=== PATIENT | female | born 1940 | race Caucasian/White ===

== ENCOUNTER 2018-01-10 14:53 | Observation (INO) | payer MEDICARE ==
[~2018-01-10] VITALS: Ht 157.5 cm; Wt 68.1 kg
[2018-01-10] MEDS ORDERED: LISINOPRIL10 MG PO (14:59)
[2018-01-10] MEDS ORDERED: CARVEDILOL12.5 MG PO (14:59)
[2018-01-10] MEDS ORDERED: ASPIRIN81 MG PO (14:59)
[2018-01-10] MEDS ORDERED: ATORVASTATIN CA10 MG PO (14:59)
[2018-01-10] MEDS ORDERED: METFORMIN HCL500 MG PO (14:59)
[2018-01-10] MEDS ORDERED: ASPIRIN 81 MG CHEW TAB PO ONE (15:00)
[2018-01-10 15:18] LABS: BASOPHILS % 0.7 % (0.0-1.0); EOSINOPHILS # (AUTO) 0.3 (0.0-0.4); EOSINOPHILS % 4.4 % (0.0-6.0); HEMOGLOBIN 10.9 g/dL (12.0-16.0); LYMPHOCYTES # (AUTO) 1.4 (1.0-3.2); LYMPHOCYTES % 24.3 % (18.0-39.1); MEAN CORPUSCULAR HEMOGLOBIN 24.9 pg (28-32); MEAN CORPUSCULAR VOLUME 75.3 fL (81-99); MONOCYTES # (AUTO) 0.4 (0.2-0.8); MONOCYTES % 7.6 % (4.4-11.3); NEUTROPHILS # (AUTO) 3.5 (2.1-6.9); NEUTROPHILS % 62.6 % (38.7-80.0); PLATELET COUNT 283 x10e3/uL (140-360); RED BLOOD COUNT 4.38 x10e6/uL (3.6-5.1); RED CELL DISTRIBUTION WIDTH 14.4 % (11.7-14.4)
[2018-01-10 15:25] LABS: CLARITY,URINE HAZY (CLEAR); COLOR,URINE YELLOW (YELLOW); KETONES,URINE NEGATIVE (NEGATIVE); LEUKOCYTE ESTERASE ,URINE 1+ (NEGATIVE); NITRITE,URINE NEGATIVE (NEGATIVE); PROTEIN,URINE DIPSTICK TRACE (NEGATIVE); URINE UROBILINOGEN 0.2 mg/dL (0.2 - 1)
[2018-01-10 15:26] LABS: BILIRUBIN,URINE NEGATIVE (NEGATIVE)
[2018-01-10 15:28] LABS: AMORPHOUS SEDIMENT,URINE FEW (FEW); BACTERIA,URINE FEW /HPF; EPITHELIAL CELLS,URINE MODERATE /LPF
[2018-01-10 15:28] LABS: INR 1.02; PARTIAL THROMBOPLASTIN TIME 30.3 seconds (23.8-35.5); PROTHROMBIN TIME 12.6 seconds (11.9-14.5)
[2018-01-10 15:35] LABS: ALANINE AMINOTRANSFERASE 8 IU/L (0-55); ALBUMIN/GLOBULIN RATIO 1.4 (0.8-2.0); ALKALINE PHOSPHATASE 106 IU/L (40-150); ANION GAP 13.2 mmol/L (8-16); BLOOD UREA NITROGEN 22 mg/dL (7-26); BUN/CREATININE RATIO 15 (6-25); CALCIUM 9.4 mg/dL (8.4-10.2); CARBON DIOXIDE 25 mmol/L (22-29); CHLORIDE 98 mmol/L (98-107); CREATINE KINASE 42 IU/L (29-168); EST GLOMERULAR FILTRATION RATE 34 ML/MIN (60-); GLUCOSE 113 mg/dL (74-118); MAGNESIUM 1.7 MG/DL (1.3-2.1); POTASSIUM 4.2 mmol/L (3.5-5.1); SODIUM 132 mmol/L (136-145)
[2018-01-10] MEDS ORDERED: NITROGLYCERIN 2% OINT 1 GM PKT TOP ONE (15:45)
[2018-01-10 15:56] LABS: THYROID STIMULATING HORMONE 2.372 uIU/mL (0.350-4.940)
--- NOTE | 2018-01-10 16:25 | Diagnostic Imaging Report ---
EXAMINATION: CHEST SINGLE (PORTABLE) INDICATION: \S\ERMD ORDER \S\[id number] \S\1525 \S\Y COMPARISON: None FINDINGS: AP view TUBES and LINES: None. LUNGS: Lungs are well inflated. Lungs are clear. There is no evidence of pneumonia or pulmonary edema. PLEURA: No pleural effusion or pneumothorax. HEART AND MEDIASTINUM: Aortic arch calcifications. The cardiomediastinal silhouette is otherwise unremarkable. BONES AND SOFT TISSUES: No acute osseous lesion. Soft tissues are unremarkable. UPPER ABDOMEN: No free air under the diaphragm. IMPRESSION: No acute thoracic abnormality. Signed by: DR. Jose Mcintosh MD on 01/10/2018 4:21 PM
--- OUTSIDE RECORDS SUMMARY | 2018-01-10 16:58 | XMS REPORT ---
[facility] Address Unknown Phone Unavailable Care Team Providers Care Collection Manager Name Role Phone [place] SOTO Unavailable Unavailable Problems This patient has no known problems. Allergies, Adverse Reactions, Alerts This patient has no known allergies or adverse reactions. Medications This patient has no known medications. Results Test Description Test Time Test Comments Text Results Atomic Results Result Comments CHEST SINGLE (PORTABLE) [address] [address] Patient Name: LENA GONZALEZ MR #: [id number] : 1940 Age/Sex: 77/F Req #: [id number] Adm Physician: Ordered by: CARLA MEJIA QUANTITATIVE ANALYST Report #: [id number] Location: ER Room/Bed: Procedure: [id number] DX/CHEST SINGLE (PORTABLE) Exam Date: 01/10/18 Exam Time: 1525 REPORT STATUS: Signed EXAMINATION: CHEST SINGLE (PORTABLE) INDICATION: COMPARISON: None FINDINGS: AP view TUBES and LINES: None. LUNGS: Lungs are well inflated. Lungs are clear. There is no evidence of pneumonia or pulmonary edema. PLEURA: No pleural effusion or pneumothorax. HEART AND MEDIASTINUM: Aortic arch calcifications. The cardiomediastinal silhouette is otherwise unremarkable. BONES AND SOFT TISSUES: No acute osseous lesion. Soft tissues are unremarkable. UPPER ABDOMEN: No free air under the diaphragm. IMPRESSION: No acute thoracic abnormality. Signed by: DR. Jose Yuan MD on 2017 4:21 PM Dictated By: JOSE YUAN MD 162 Transcribed By: ROSALIO on 01/10/18 162 COPY TO: CARLA MEJIA NP
[2018-01-10] MEDS ORDERED: SODIUM CHLORIDE FLUSH 10 ML SYR INJ PRN (17:00)
[2018-01-10] MEDS ORDERED: ONDANSETRON HCL INJ 2 MG/ML VIAL IV PRN (17:00)
[2018-01-10] MEDS ORDERED: MORPHINE SULFATE 2 MG/ML SYR IV PRN (17:00)
[2018-01-10] MEDS ORDERED: NITROGLYCERIN 0.4 MG SUBL SL PRN (17:00)
[2018-01-10 17:44] VITALS: BP 136/66
[2018-01-10] MEDS: NITROGLYCERIN 2% OINT 1 GM PKT TOP SCH (17:59)
[2018-01-10] MEDS: FAMOTIDINE 20 MG TAB PO SCH (18:11)
[2018-01-10] MEDS: ENOXAPARIN SODIUM INJ 100 MG/ML SYR SC SCH (18:12)
[2018-01-10 18:13] VITALS: BP 136/66
[2018-01-10 19:02] VITALS: BP 136/66
[2018-01-10 20:00] VITALS: BP 114/54
[2018-01-11] VITALS (7 sets, daily range): BP systolic 99–125; BP diastolic 55–71
[2018-01-11 03:22] LABS: CREATINE KINASE MB 0.9 ng/mL (0-5.0)
[2018-01-11] MEDS: NITROGLYCERIN 2% OINT 1 GM PKT TOP SCH ×5 (06:00→23:48)
[2018-01-11] MEDS: ENOXAPARIN SODIUM INJ 100 MG/ML SYR SC SCH ×2 (06:04→17:12)
[2018-01-11] MEDS: FAMOTIDINE 20 MG TAB PO SCH ×2 (06:04→17:12)
[2018-01-11 07:12] LABS: BASOPHILS % 0.9 % (0.0-1.0); EOSINOPHILS # (AUTO) 0.2 (0.0-0.4); EOSINOPHILS % 4.9 % (0.0-6.0); HEMATOCRIT 31.5 % (34.2-44.1); HEMOGLOBIN 10.2 g/dL (12.0-16.0); LYMPHOCYTES # (AUTO) 1.2 (1.0-3.2); LYMPHOCYTES % 26.9 % (18.0-39.1); MEAN CORPUSCULAR HEMOGLOBIN 24.3 pg (28-32); MEAN CORPUSCULAR HGB CONC 32.4 g/dL (31-35); MEAN CORPUSCULAR VOLUME 75.2 fL (81-99); MONOCYTES # (AUTO) 0.3 (0.2-0.8); MONOCYTES % 6.9 % (4.4-11.3); NEUTROPHILS # (AUTO) 2.7 (2.1-6.9); NEUTROPHILS % 60.2 % (38.7-80.0); PLATELET COUNT 248 x10e3/uL (140-360); RED BLOOD COUNT 4.19 x10e6/uL (3.6-5.1); RED CELL DISTRIBUTION WIDTH 14.1 % (11.7-14.4)
[2018-01-11 07:43] LABS: ANION GAP 12.9 mmol/L (8-16); CHOL/HDL RATIO 3.4 (3.0-3.6); CREATININE, SERUM 1.28 mg/dL (0.57-1.11); POTASSIUM 3.9 mmol/L (3.5-5.1)
[2018-01-11 08:14] LABS: CREATINE KINASE MB 0.9 ng/mL (0-5.0)
[2018-01-11] MEDS: ASPIRIN 81 MG ENTERIC COATED PO SCH (08:33)
[2018-01-11] MEDS ORDERED: DEXTROSE 50% SYRINGE 50 ML IV PRN (17:15)
--- NOTE | 2018-01-11 17:57 | History and Physical ---
PRIMARY CARE PHYSICIAN: Dr. Sofía Luis with [facility]. HISTORY: Ms. Milian is a pleasant, 77-year-old female with chest pain. The patient was in her usual state of health until yesterday. She had onset of severe chest pain. She calls it 5/10 but this is the most severe she has ever had. Pain persisted for 40 minutes. The pain did not remit until later. She is not knowledgeable of what factors it took for onset nor what it took to get better. The patient with intermittent GERD and is on GERD therapy, but that pain never felt as bad as this in the past. She came to the emergency room. EKG with nonspecific changes but sinus rhythm at 67 beats per minute, otherwise mostly unremarkable. Chest x-ray done with no acute thoracic abnormality noted. She is admitted for observation. Initial cardiac enzymes are also unremarkable so far. BNP level was 14.6. PAST MEDICAL HISTORY: Hypertension, diabetes, hyperlipidemia, daily GERD. MEDICATIONS: Medication list reviewed per electronic record. ALLERGIES: NO KNOWN DRUG ALLERGIES. SOCIAL HISTORY: The patient smoked from age 20 to 62, one pack per day. No alcohol, no drugs. 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 FAMILY HISTORY: Noncontributory. REVIEW OF SYSTEMS: GENERAL: No weight changes. OPHTHALMOLOGIC: No double vision. ENT: No history of salivary gland problems. ENDOCRINE: No known thyroid disease. PULMONARY: No asthma. CARDIAC: No MIs in the past. GI: No constipation. : No blood in urine. MUSCULOSKELETAL: Mild arthritis. NEUROLOGIC: No seizures. PSYCHIATRIC: No depression. OBJECTIVE VITAL SIGNS: Afebrile, vital signs noted per electronic record. GENERAL: In no acute distress, alert and calm. HEENT: Normocephalic, atraumatic. NECK: Supple. Throat midline. LUNGS: Bilateral air entry, few decreased breath sounds at the extreme bases, but for most part otherwise clear. CARDIOVASCULAR: S1 and S2. No murmurs, rubs or gallops. ABDOMEN: Soft and nontender. EXTREMITIES: No cyanosis, clubbing or edema. INTEGUMENT: No rash. No purpura. LABORATORY DATA: Potassium 3.9, BUN 22, creatinine 1.3, white count 4.4, hematocrit 32, platelets 248,000. Chest x-ray clear as stated above. IMPRESSION 1. Chest pain, mild atypical features, but worse ever. 2. Hypertension. 3. Diabetes. 4. Hyperlipidemia. 5. Former smoker, quit 10-15 years ago per the patient. 6. Daily gastroesophageal reflux disease. PLAN: At this time, check echo. Cardiology to finalize their evaluation and assessment for the need of outpatient and first inpatient workup. The patient will have continued blood pressure and diabetes oversight while she is here. Continue smoking cessation is recommended. Will empirically treat for possible GERD as well. I would like to thank Dr. Gordon and Dr. Luis for allowing me the chance to participate in the care of Ms. Milian. Do not hesitate to contact me if I can help in any way. Job#: [id number] LUIS ALBERTO
[2018-01-11 18:05] LABS: THYROID STIMULATING HORMONE 1.798 uIU/mL (0.350-4.940)
[2018-01-11] MEDS: INSULIN REGULAR, HUMAN 100 UNIT/1 ML 3ML VIAL SQ SCH (21:00)
[2018-01-11] MEDS: ATORVASTATIN 10 MG TAB PO SCH (21:32)
[2018-01-12] VITALS: BP 97/51
[2018-01-12 04:00] VITALS: BP 123/58
[2018-01-12] MEDS: ENOXAPARIN SODIUM INJ 100 MG/ML SYR SC SCH (04:15)
[2018-01-12] MEDS: FAMOTIDINE 20 MG TAB PO SCH ×2 (04:15→18:02)
[2018-01-12] MEDS: NITROGLYCERIN 2% OINT 1 GM PKT TOP SCH ×3 (05:08→18:03)
[2018-01-12 07:22] VITALS: BP 123/58
[2018-01-12] MEDS: INSULIN REGULAR, HUMAN 100 UNIT/1 ML 3ML VIAL SQ SCH ×4 (07:30→21:00)
[2018-01-12 07:58] VITALS: BP 114/67
[2018-01-12] MEDS: LISINOPRIL 10 MG TAB PO SCH (09:24)
[2018-01-12] MEDS: CARVEDILOL 12.5 MG TAB PO SCH ×2 (09:24→18:02)
[2018-01-12] MEDS: ASPIRIN 81 MG ENTERIC COATED PO SCH (09:24)
--- NOTE | 2018-01-12 10:43 | Consultation ---
DATE OF CONSULTATION: CARDIOLOGY CONSULTATION CLINICAL HISTORY: This is a 77-year-old white woman, [facility] via the emergency room because of prolonged chest pains lasting for approximately 40 minutes rated 8 on a scale of 10. Described as chest pressure eventually resolving. This patient says she does a moderate amount of physical activity including climbing stairs. She does have some dyspnea with exertion, but denies any chest pressure similar to what she had this time. She was at [facility] when she developed the chest pressure and decided to drive all the way to [place] to buy things at [facility]. She was still having chest pressure at that time. She felt hot, but no diaphoresis. Minier some shortness of breath, but no nausea or vomiting. She decided to come to the emergency room to get evaluated. EKG showed nonspecific findings. Cardiac enzymes were negative. Cardiac consultation was requested. PAST MEDICAL HISTORY: Remarkable for hypertension, diabetes and hyperlipidemia. PAST SURGICAL HISTORY: Appendectomy, tonsillectomy and bladder suspension. FAMILY HISTORY: Father had coronary artery disease in his 60s from lung cancer. Mother had coronary artery disease in her 70s. Brother fell and , and also had coronary artery disease. Sister is healthy. MEDICATIONS: Please refer to the records. She is taking aspirin, metformin, atorvastatin, Coreg 12.5 mg b.i.d., and lisinopril 10 mg per day. REVIEW OF SYSTEMS: Noncontributory. PHYSICAL EXAMINATION GENERAL: She is alert and coherent. VITALS: Stable. CARDIAC: Jugular veins are not distended. S1 and S2 are regular. There is no appreciable murmur. LUNGS: Clear. ABDOMEN: Soft. Bowel sounds are present. EXTREMITIES: Show no cyanosis, clubbing or edema. LABORATORY STUDIES: As mentioned, the white count is 4400, hemoglobin 10.2 and platelet count is 249,000. BUN 22, creatinine 1.28 and potassium 3.9. IMPRESSION 1. Prolonged moderately severe chest pains lasting for 40 minutes: Spontaneously resolved. Consider coronary artery disease. 2. Diabetes. 3. Hypertension. 4. Hyperlipidemia. 5. Anemia. 6. Distant history of smoking. 7. History of reflux esophagitis. RECOMMENDATION: Consider echocardiogram and stress testing. This patient indicates she does not want to have any further testing, and wishes to do them as an outpatient with [facility]. Job#: [id number] RI cc: ANNIE GILMAN MD
[2018-01-12 15:33] VITALS: BP 143/67
--- NOTE | 2018-01-12 17:54 | Cardiology Report ---
DATE OF STUDY: ECHOCARDIOGRAM M-MODE: Normal chamber and wall dimensions. Normal contractility. Sclerosis of the mitral annulus. Normal aortic valves. No pericardial effusion. SECTOR SCAN: Normal chamber and wall dimensions. Normal contractility. Sclerosis of mitral valve annulus. Sclerosis of the aortic valve. Normal tricuspid valves. No pericardial effusion. CARDIAC DOPPLER STUDY WITH COLOR: 2+ aortic regurgitation, 1+ mitral regurgitation, 1+ tricuspid regurgitation. Pulmonary artery systolic pressure estimated at 39 mmHg. CONCLUSIONS 1. Mild sclerosis of the aortic valve with at least moderate aortic regurgitation. 2. Sclerosis of mitral valve annulus with mild mitral regurgitation. 3. Mild tricuspid regurgitation with pulmonary artery systolic pressure estimated at 39 mmHg. Job#: [id number] CQ cc:Heriberto GARCIA DR [facility]
[2018-01-12 20:00] VITALS: BP 115/55
[2018-01-12] MEDS: ATORVASTATIN 10 MG TAB PO SCH (21:02)
[2018-01-12] MEDS: ENOXAPARIN INJ 80 MG/0.8 ML SYR SC SCH (21:02)
--- NOTE | 2018-01-12 21:29 | Progress Note ---
DATE: January 12, 2018 INTERNAL MEDICINE PROGRESS NOTE SUBJECTIVE: Ms. Milian was seen and examined at bedside. Blood pressure sometimes mildly high, but mostly unremarkable. Chest pains have not reoccurred. She was seen by cardiology who finds some worrisome factors in the patient's condition. Originally, patient had to contemplate whether she wanted to do the workup, and later on she gives consent. REVIEW OF SYSTEMS: No bleeding, no headaches. OBJECTIVE: VITAL SIGNS: Afebrile, vital signs noted per electronic record. GENERAL: In no acute distress, alert and calm. HEENT: Normocephalic, atraumatic. NECK: Supple. Throat midline. LUNGS: Bilateral air entry, clear. CARDIOVASCULAR: S1, S2. No murmurs, rubs, or gallops. ABDOMEN: Soft, nontender. EXTREMITIES: No clubbing, no cyanosis, there is no edema. INTEGUMENT: No rash, no purpura. IMPRESSION AND PLAN: 1. Chest pains, treat for possible acute coronary syndrome. 2. Chest pains, treat for possible gastroesophageal reflux disease. 3. Diabetes. 4. Hypertension. 5. Hyperlipidemia. 6. Former smoker. 7. Mild anemia. 8. Elevated creatinine, possible early chronic kidney disease. Continue cardiac medications. Insulin coverage. Follow up blood pressures, ensure appropriate control. Patient consents for stress test given her high risk factors and worse ever chest pain. She will get stress test likely tomorrow. Appreciate cardiology input. Job#: [id number]
[2018-01-13] VITALS: BP 116/86
[2018-01-13] MEDS: NITROGLYCERIN 2% OINT 1 GM PKT TOP SCH ×3 (00:58→12:00)
[2018-01-13] MEDS: FAMOTIDINE 20 MG TAB PO SCH (01:07)
[2018-01-13 04:00] VITALS: BP 124/56
[2018-01-13] MEDS: INSULIN REGULAR, HUMAN 100 UNIT/1 ML 3ML VIAL SQ SCH ×2 (07:30→11:30)
[2018-01-13] MEDS: CARVEDILOL 12.5 MG TAB PO SCH (08:00)
[2018-01-13 08:17] VITALS: BP 141/66
[2018-01-13] MEDS: LISINOPRIL 10 MG TAB PO SCH (09:00)
[2018-01-13] MEDS: ASPIRIN 81 MG ENTERIC COATED PO SCH (09:00)
[2018-01-13 11:06] VITALS: BP 141/66
[2018-01-13 12:44] VITALS: BP 156/70
[2018-01-13] MEDS: ENOXAPARIN INJ 80 MG/0.8 ML SYR SC SCH (12:45)
--- NOTE | 2018-01-14 10:01 | Discharge Summary ---
PRIMARY DIAGNOSIS: Chest pain, thought less likely to be cardiac. SECONDARY DIAGNOSES 1. Hypertension. 2. Diabetes. 3. Hypertriglyceridemia. 4. Gastroesophageal reflux disease. 5. Former smoker. HOSPITAL COURSE: Ms. Milian presented with chest pain that lasted for about 30 to 40 minutes. This was the worst chest pain ever. Due to her significant risk factors, she was recommended for inpatient stress test. Initially, she deferred but later she changed her mind. The patient underwent stress test on January 13, 2018. Due to unremarkable findings, the patient was allowed for discharge and outpatient followup. Echocardiogram additionally was done showing 2+ aortic regurgitation, 1+ MR, 1+ TR, RVSP estimated at 39 mmHg, and normal contractility. DIET: GI, cardiac diet. ACTIVITY: As tolerated. MEDICATIONS: Medication list reviewed per record; please see medicine reconciliation form for list. FOLLOW-UP: With [facility] in a couple of weeks. Greater than 30 minutes in discharge coordination and care today. DEBORA PIMENTEL MD Job#: [id number] PSO
== END 2018-01-13 14:50 | disposition home or self-care (01) ==
LOC: ER 14:53 → ERHOLD 16:55 → IMCU 17:29
PROVIDERS: ADMIT Internal Medicine; ATTEND Internal Medicine
DX: R07.89 Other chest pain (principal); I10 Essential (primary) hypertension; E11.9 Type 2 diabetes mellitus without complications; E78.5 Hyperlipidemia, unspecified; D64.9 Anemia, unspecified; K21.0 Gastro-esophageal reflux disease with esophagitis; Z87.891 Personal history of nicotine dependence; Z82.49 Family history of ischemic heart disease and other diseases of the circulatory system; E78.1 Pure hyperglyceridemia
CPT/HCPCS: 36415 ×4; 71045; 80048; 80053; 80061; 81001; 82550 ×2; 82553 ×2; 82948 ×4; 83690; 83735; 83880; 84443 ×2; 84484 ×2; 85025 ×2; 85610; 85730; 93005; 93017; 93306; 99284; G0378 ×4; J1650 ×5

== ENCOUNTER 2018-06-07 06:22 | Inpatient (IN) | payer MEDICARE ==
[~2018-06-07] VITALS: Ht 157.5 cm; Wt 68.0 kg
[~2018-06-07 06:22] MED LIST: ASPIRIN81 MG PO; ATORVASTATIN CA10 MG PO; CARVEDILOL12.5 MG PO; LISINOPRIL10 MG PO; METFORMIN HCL500 MG PO
[2018-06-07] MEDS ORDERED: HYDROMORPHONE 1MG/1ML INJ IV STA (06:34)
[2018-06-07] MEDS ORDERED: ONDANSETRON HCL INJ 2 MG/ML VIAL IV STA (06:34)
[2018-06-07] MEDS ORDERED: ATORVASTATIN CA20 MG PO (06:49)
[2018-06-07] MEDS ORDERED: FOLIC ACID1 MG PO (06:49)
[2018-06-07] MEDS ORDERED: CARVEDILOL12.5 MG PO (06:50)
[2018-06-07 06:51] LABS: BASOPHILS % 0.2 % (0.0-1.0); EOSINOPHILS # (AUTO) 0.2 (0.0-0.4); EOSINOPHILS % 2.5 % (0.0-6.0); HEMATOCRIT 31.7 % (34.2-44.1); HEMOGLOBIN 10.4 g/dL (12.0-16.0); LYMPHOCYTES # (AUTO) 0.9 (1.0-3.2); LYMPHOCYTES % 13.2 % (18.0-39.1); MEAN CORPUSCULAR HEMOGLOBIN 24.9 pg (28-32); MEAN CORPUSCULAR HGB CONC 32.8 g/dL (31-35); MEAN CORPUSCULAR VOLUME 75.8 fL (81-99); MONOCYTES # (AUTO) 0.1 (0.2-0.8); NEUTROPHILS # (AUTO) 5.3 (2.1-6.9); NEUTROPHILS % 81.5 % (38.7-80.0); PLATELET COUNT 197 x10e3/uL (140-360); RED BLOOD COUNT 4.18 x10e6/uL (3.6-5.1); RED CELL DISTRIBUTION WIDTH 15.1 % (11.7-14.4)
[2018-06-07] MEDS ORDERED: LISINOPRIL10 MG PO (06:51)
[2018-06-07] MEDS ORDERED: METFORMIN HCL850 MG PO (06:51)
[2018-06-07] MEDS ORDERED: METHOTREXATE2.5 MG PO ×2 (06:52)
[2018-06-07] MEDS ORDERED: AMLODIPINE BESYL5 MG PO (06:52)
[2018-06-07 06:58] LABS: CLARITY,URINE CLEAR (CLEAR); COLOR,URINE YELLOW (YELLOW); KETONES,URINE NEGATIVE (NEGATIVE); LEUKOCYTE ESTERASE ,URINE NEGATIVE (NEGATIVE); NITRITE,URINE NEGATIVE (NEGATIVE); PROTEIN,URINE DIPSTICK NEGATIVE (NEGATIVE)
[2018-06-07 06:59] LABS: BILIRUBIN,URINE NEGATIVE (NEGATIVE); URINE UROBILINOGEN 0.2 mg/dL (0.2 - 1)
[2018-06-07 07:02] LABS: INR 1.01; PROTHROMBIN TIME 12.5 seconds (11.9-14.5)
[2018-06-07 07:03] LABS: PARTIAL THROMBOPLASTIN TIME 28.3 seconds (23.8-35.5)
[2018-06-07 07:07] LABS: RBC,URINE 0-5 /HPF (0-5); WBC,URINE (MAN) 0-5 /HPF (0-5)
[2018-06-07 07:08] LABS: EPITHELIAL CELLS,URINE RARE /LPF
[2018-06-07 07:10] LABS: ALBUMIN 3.9 g/dL (3.5-5.0); ALBUMIN/GLOBULIN RATIO 1.3 (0.8-2.0); ANION GAP 14.9 mmol/L (8-16); CALCIUM 9.5 mg/dL (8.4-10.2); CREATININE, SERUM 1.25 mg/dL (0.57-1.11); POTASSIUM 3.9 mmol/L (3.5-5.1)
[2018-06-07 07:16] LABS: CREATINE KINASE MB 0.8 ng/mL (0-5.0)
--- NOTE | 2018-06-07 07:46 | Diagnostic Imaging Report ---
EXAMINATION: Head and cervical spine CT without contrast. HISTORY: Status post fall, head trauma, head and neck pain. COMPARISON: None. TECHNIQUE: Multidetector axial images were obtained without contrast from the foramen magnum to the vertex and through the cervical spine. The images were reconstructed using brain and bone algorithms. Thin section brain images were reformatted into coronal and sagittal planes. Dose modulation, iterative reconstruction, and/or weight based adjustment of the mA/kV was utilized to reduce the radiation dose to as low as reasonably achievable. HEAD CT FINDINGS: Skull: No lytic or blastic lesions. No fractures. Right superior parietal scalp swelling/hematoma without underlying fractures. Parenchyma: Moderate to severe confluent periventricular, coronal gradient consistent with metastatic hypodensities, most likely nonspecific unremarkable scrotal ischemic changes. Small chronic lacunar infarcts in the right frontal and parietal deep white matter No mass, hemorrhage or CT evidence of acute vascular insult. Brain volume: Normal for age. Ventricles: No hydrocephalus or displacement. Arteries: No density suggestive of thrombus. Dural sinuses: No abnormal density. Extra-axial spaces: No abnormal density. Foramen magnum: No mass, Chiari malformation, or basilar invagination. Sella: No obvious mass. Paranasal/mastoid sinuses: Imaged portions unremarkable. CERVICAL SPINE CT FINDINGS: Alignment:Normal alignment and lordosis. Soft tissues: Normal. Vertebrae: Normal height and density. No acute fracture, infection or neoplasm. Degenerative changes: C1-C2: Normal C2-C3: Facet arthrosis without stenoses C3-C4: Disc osteophyte complex formation, uncovertebral and facet arthrosis. Moderate right and severe left foraminal stenoses. C4-C5: Disc osteophyte complex formation, uncovertebral and facet arthrosis. Mild canal and moderately severe foraminal stenosis. C5-C6: Disc osteophyte complex formation asymmetric to the right, uncovertebral and facet arthrosis. Moderate spinal canal stenosis. Severe right and mild left foraminal stenosis. C6-C7: Disc osteophyte complex formation, bilateral uncovertebral and facet arthrosis. Severe right and moderate left foraminal stenoses. C7-T1: Uncovertebral and facet arthrosis. Moderate right foraminal stenoses. IMPRESSION: Head CT: 1. No acute postraumatic intracranial hemorrhage. 2. Moderate chronic microvascular ischemic changes Cervical spine CT: 1. No acute fractures or dislocations. 2. Multilevel chronic degenerative changes as described. Note: Acute post traumatic spinal cord, vascular or ligamentous injury cannot adequately be assessed with CT. Signed by: Dr. Kinga Lam M.D. on 06/07/2018 7:25 AM
[2018-06-07] MEDS ORDERED: HYDROMORPHONE 1MG/1ML INJ IV NR (08:32)
--- NOTE | 2018-06-07 08:32 | Diagnostic Imaging Report ---
Right hip 2 - views HISTORY: Status post fall. COMPARISON: None FINDINGS: There is an impaction fracture of the right femoral neck with mild superior displacement of the distal fracture fragment. 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 Mild DJD of the hip joints. Vascular calcifications. IMPRESSION: Impaction fracture of the right femoral neck with mild superior displacement of the distal fracture fragment. Signed by: Dr. Kala Mancera M.D. on 06/07/2018 8:28 AM
--- NOTE | 2018-06-07 08:33 | Diagnostic Imaging Report ---
EXAMINATION: CHEST SINGLE (PORTABLE) INDICATION: Status post fall. COMPARISON: 18. FINDINGS: AP view TUBES and LINES: None. LUNGS: Lungs are well inflated. Lungs are clear. There is no evidence of pneumonia or pulmonary edema. PLEURA: No pleural effusion or pneumothorax. HEART AND MEDIASTINUM: Aortic arch calcifications. The cardiomediastinal silhouette is otherwise unremarkable. BONES AND SOFT TISSUES: No acute osseous lesion. No displaced rib fracture. UPPER ABDOMEN: No free air under the diaphragm. IMPRESSION: No acute thoracic abnormality. If chest wall tenderness and concern for rib fracture, consider dedicated rib series. Signed by: Dr. Kala Mancera M.D. on 06/07/2018 8:30 AM
[2018-06-07] MEDS ORDERED: SODIUM CHLORIDE 0.9% 1000ML 1,000 ML IV SCH (08:38)
[2018-06-07] MEDS ORDERED: ONDANSETRON HCL INJ 2 MG/ML VIAL IV PRN (08:45)
[2018-06-07 10:03] VITALS: BP 115/56
[2018-06-07 13:11] VITALS: BP 115/56
[2018-06-07] MEDS: HYDROMORPHONE 1MG/1ML INJ IV PRN ×2 (15:37→20:38)
[2018-06-07 16:03] VITALS: BP 120/57
[2018-06-07] MEDS: INSULIN LISPRO 100 UNIT/1 ML 3ML VIAL SQ SCH ×2 (16:30→20:26)
[2018-06-07] MEDS: CARVEDILOL 12.5 MG TAB PO SCH (17:33)
[2018-06-07] MEDS ORDERED: CEFAZOLIN SOD 1 GM/D5W 50ML 100 ML IV ONE (18:45)
[2018-06-07] MEDS ORDERED: CEFAZOLIN SOD 1 GM VIAL IV NR (18:45)
[2018-06-07 20:24] LABS: % IRON SATURATION 14 % (15-50); IRON 51 ug/dL (50-170); TOTAL IRON BINDING CAPACITY 358 ug/dL (261-478); TRANSFERRIN 256 mg/dL (180-382)
[2018-06-07 20:29] VITALS: BP 100/45
[2018-06-07 20:38] VITALS: BP 100/45
[2018-06-07] MEDS ORDERED: ATORVASTATIN 20 MG TAB PO SCH (21:00)
[2018-06-08 01:29] VITALS: BP 108/62
[2018-06-08] MEDS: HYDROMORPHONE 1MG/1ML INJ IV PRN ×3 (01:55→10:32)
[2018-06-08] MEDS: SODIUM CHLORIDE 0.9% 1000ML 1,000 ML IV SCH ×3 (02:01→16:58)
[2018-06-08 06:16] VITALS: BP 140/65
[2018-06-08] MEDS: INSULIN LISPRO 100 UNIT/1 ML 3ML VIAL SQ SCH ×4 (07:30→21:00)
[2018-06-08 08:37] VITALS: BP 132/56
[2018-06-08] MEDS: LISINOPRIL 10 MG TAB PO SCH (09:00)
[2018-06-08] MEDS: HYDROCHLOROTHIAZIDE 25 MG TAB PO SCH (09:00)
[2018-06-08] MEDS: FOLIC ACID 1 MG TAB PO SCH (09:00)
[2018-06-08] MEDS: AMLODIPINE BESYLATE 5 MG TAB PO SCH (09:00)
[2018-06-08] MEDS: METFORMIN HCL 500 MG TAB CR PO SCH (09:00)
[2018-06-08] MEDS: CARVEDILOL 12.5 MG TAB PO SCH ×2 (10:00→21:00)
[2018-06-08] MEDS ORDERED: IRON SUCROSE 100 MG in SODIUM CHLORIDE 0.9% 100 ML 100 ML IV SCH (11:00)
[2018-06-08] MEDS ORDERED: BACITRACIN 50,000 UNIT VIAL ONE (11:55)
[2018-06-08 12:12] VITALS: BP 105/44
[2018-06-08] MEDS ORDERED: SEVOFLURANE INHAL SOLN 250 ML PEN BTL ONE (15:29)
[2018-06-08] MEDS ORDERED: ROCURONIUM BROMIDE 10 MG/ML 5ML VIAL ONE (15:29)
[2018-06-08] MEDS ORDERED: NEOSTIGMINE 5 MG/5ML SYR ONE (15:29)
[2018-06-08] MEDS ORDERED: LIDOCAINE HCL 2% LOCAL INJ 5 ML SDV VIAL INJ ONE (15:29)
[2018-06-08] MEDS ORDERED: CEFAZOLIN SOD 1 GM VIAL ONE (15:29)
[2018-06-08] MEDS ORDERED: GLYCOPYRROLATE INJ 1MG/ 5 ML SYR ONE (15:29)
[2018-06-08] MEDS ORDERED: DEXAMETHASONE SOD PHOS INJ 4 MG/ML VIAL ONE (15:29)
[2018-06-08] MEDS ORDERED: PHENYLEPHRINE HCL 1% 10 MG/ML VIAL ONE (15:29)
[2018-06-08] MEDS ORDERED: ACETAMINOPHEN 1000 MG/100 ML IV ONE (15:29)
[2018-06-08] MEDS ORDERED: VASOPRESSIN INJ 20 UNIT/ML VIAL ONE (15:29)
[2018-06-08] MEDS ORDERED: ONDANSETRON HCL INJ 2 MG/ML VIAL ONE (15:29)
[2018-06-08] MEDS ORDERED: PROPOFOL IV EMULSION 10 MG/ML 20 ML VIAL ONE (15:29)
[2018-06-08] MEDS ORDERED: ONDANSETRON HCL INJ 2 MG/ML VIAL IV PRN (17:00)
[2018-06-08] MEDS ORDERED: NALOXONE HCL INJ 0.4 MG/ML AMP IV PRN (17:00)
[2018-06-08] MEDS ORDERED: ACETAMINOPHEN 1000 MG/100 ML IV PRN (17:00)
[2018-06-08] MEDS ORDERED: HYDROMORPHONE 0.2MG/ML-SOD CHL 30ML PCA SYRINGE IV PRN (17:00)
[2018-06-08] MEDS ORDERED: DIPHENHYDRAMINE HCL INJ 50 MG/ML VIAL IM/IV PRN (17:00)
[2018-06-08] MEDS ORDERED: HYDROMORPHONE 0.2MG/ML-SOD CHL 30ML PCA SYRINGE IV ONE (18:08)
--- NOTE | 2018-06-08 18:21 | Diagnostic Imaging Report ---
PROCEDURE:X-RAY PELVIS, AP VIEW COMPARISON:06/07/18 INDICATIONS:POST OP FINDINGS: See conclusion. CONCLUSION: Postoperative changes of right hip arthroplasty, marked by soft tissue edema, emphysema, and skin dustin. Hardware is intact. Dictated by: Hair Arteaga M.D. on 06/08/2018 at 18:27 Electronically approved by: Hair Arteaga M.D. on 06/08/2018 at 18:27
--- NOTE | 2018-06-08 18:22 | Diagnostic Imaging Report ---
PROCEDURE:HIP RIGHT 2-3 VW (+/- PELVIS) COMPARISON:06/07/18 INDICATIONS:POST OP FINDINGS: See conclusion. CONCLUSION: Postoperative changes of right hip arthroplasty, marked by soft tissue edema, emphysema, and skin dustin. Hardware is intact. Dictated by: Hiar Arteaga M.D. on 06/08/2018 at 18:28 Electronically approved by: Hair Arteaga M.D. on 06/08/2018 at 18:28
[2018-06-08 18:38] VITALS: BP 113/49
--- NOTE | 2018-06-08 18:52 | Diagnostic Imaging Report ---
PROCEDURE:HIP RIGHT ONE VIEW / OR COMPARISON:None. INDICATIONS:Not provided. FINDINGS: See conclusion. CONCLUSION: Postsurgical changes of right hip arthroplasty. Hardware is intact. Dictated by: Hair Arteaga M.D. on 06/08/2018 at 18:58 Electronically approved by: Hair Arteaga M.D. on 06/08/2018 at 18:58
[2018-06-08] MEDS ORDERED: KETAMINE HCL INJ 50 MG/ML 10 ML VIAL ONE (19:53)
[2018-06-08] MEDS ORDERED: FENTANYL CITRATE/PF 100MCG/2 ML INJ ONE (19:53)
[2018-06-08 20:00] VITALS: BP 108/55
[2018-06-08] MEDS: IRON SUCROSE 100 MG in SODIUM CHLORIDE 0.9% 100 ML 100 ML IV SCH (20:24)
[2018-06-08] MEDS ORDERED: CEFAZOLIN SOD 1 GM/D5W 50ML 50 ML IV SCH (22:00)
[2018-06-08] MEDS: ATORVASTATIN 40 MG TAB PO SCH (22:02)
[2018-06-08] MEDS: CEFAZOLIN SOD 1 GM VIAL IV SCH (22:02)
[2018-06-09] VITALS (9 sets, daily range): BP systolic 110–134; BP diastolic 55–63
[2018-06-09] MEDS: SODIUM CHLORIDE 0.9% 1000ML 1,000 ML IV SCH (03:46)
[2018-06-09] MEDS: CEFAZOLIN SOD 1 GM VIAL IV SCH ×2 (05:31→14:00)
[2018-06-09 05:34] LABS: HEMATOCRIT 23.9 % (34.2-44.1); LYMPHOCYTES # (AUTO) 0.2 (1.0-3.2); LYMPHOCYTES % 4.3 % (18.0-39.1); MEAN CORPUSCULAR HEMOGLOBIN 25.7 pg (28-32); MEAN CORPUSCULAR HGB CONC 33.5 g/dL (31-35); MEAN CORPUSCULAR VOLUME 76.8 fL (81-99); MONOCYTES % 0.9 % (4.4-11.3); NEUTROPHILS # (AUTO) 4.2 (2.1-6.9); NEUTROPHILS % 94.1 % (38.7-80.0); PLATELET COUNT 138 x10e3/uL (140-360); RED BLOOD COUNT 3.11 x10e6/uL (3.6-5.1); RED CELL DISTRIBUTION WIDTH 14.6 % (11.7-14.4)
[2018-06-09 06:04] LABS: ANION GAP 12.3 mmol/L (8-16); CALCIUM 8.2 mg/dL (8.4-10.2); CREATININE, SERUM 0.93 mg/dL (0.57-1.11); POTASSIUM 4.3 mmol/L (3.5-5.1)
[2018-06-09 06:38] LABS: LYMPHOCYTES % (MANUAL) 8 % (19-48); MONOCYTES % (MANUAL) 1 % (3.4-9.0); NEUTROPHILS % (MANUAL) 91 % (40-74)
[2018-06-09 06:41] LABS: HYPOCHROMASIA SLIGHT; RBC MORPHOLOGY COMMENT NORMAL
[2018-06-09 06:42] LABS: ANISOCYTOSIS SLIGHT; PLATELET ESTIMATE SLIGHTLY DECREASED; PLATELET MORPHOLOGY COMMENT NORMAL; POIKILOCYTOSIS SLIGHT
[2018-06-09] MEDS: INSULIN LISPRO 100 UNIT/1 ML 3ML VIAL SQ SCH ×4 (07:30→21:00)
--- NOTE | 2018-06-09 07:54 | Operative Report ---
DATE OF PROCEDURE: June 08, 2018 PREOPERATIVE DIAGNOSIS: Displaced right femoral neck fracture. POSTOPERATIVE DIAGNOSIS: Displaced right femoral neck fracture. OPERATION/PROCEDURE PERFORMED: The patient underwent a right hip hemiarthroplasty with a size 14 Press-Fit stem, a +7 neck extension and a 44-mm head. PRINCIPAL TECHNICAL WRITER: None. ANESTHESIA: General endotracheal intubation anesthesia. IV FLUIDS: Refer to the anesthesia record. BRIEF DESCRIPTION OF PATIENT'S OPERATIVE PROCEDURE: Ms. Milian was taken to the operating room and placed in supine position on operating table. Following induction of general anesthesia as well as endotracheal intubation, the patient was turned into a lateral position with the right side down. She was held in place with well-padded hip positioners. Her bilateral lower extremities were also well-padded at this time. She also had an axillary roll placed in the left chest wall. The patient's thigh and flank were then prepped and draped in standard surgical fashion. Standard posterolateral approach to the hip was undertaken. A curvilinear incision was centered over the greater trochanter. It was carried through the skin, subcutaneous tissues to the level of the tensor fascia moreno and gluteus bruno fascia. These were then divided in line with the skin incision. Charnley retractor was placed within the wound. Care was taken to identify the sciatic nerve and protected throughout the remainder of the case. The short external rotators were elevated to the posterolateral aspect of the hip. These were reflected posteriorly to protect the sciatic nerve throughout the remainder of the case. This revealed a displaced femoral neck fracture. A femoral neck cut was performed. The head was removed from the acetabulum. Sequential broaching was then undertaken until an appropriate-sized broach was placed within the proximal femur. A trial neck and head were affixed to the broach and the hip was reduced and placed through range of motion. The hip was found to be stable. Intraoperative x-rays confirmed re-establishment of the patient's limb length. The trial components were removed. A size 14 Press-Fit stem was then inserted to the femur taking care to provide the patient appropriate amount of anteversion. A neck extension and head were then affixed to the stem. The hip was then again reduced atraumatically and hip was placed in motion and found to be quite stable. The wound was copiously irrigated. The capsule was repaired. The remaining soft tissues were closed in a multilayer fashion. Sterile dressings were applied. The patient was provided an abduction pillow, awakened and taken to the post anesthesia care unit in stable condition. Job#: [id number] GE
[2018-06-09] MEDS: RIVAROXABAN 10 MG TABLET PO SCH (09:00)
[2018-06-09] MEDS: HYDROCHLOROTHIAZIDE 25 MG TAB PO SCH (09:25)
[2018-06-09] MEDS: LISINOPRIL 10 MG TAB PO SCH (09:25)
[2018-06-09] MEDS: METFORMIN HCL 500 MG TAB CR PO SCH (09:25)
[2018-06-09] MEDS: AMLODIPINE BESYLATE 5 MG TAB PO SCH (09:25)
[2018-06-09] MEDS: FOLIC ACID 1 MG TAB PO SCH (09:25)
[2018-06-09] MEDS: CARVEDILOL 12.5 MG TAB PO SCH ×2 (09:25→21:53)
[2018-06-09] MEDS: IRON SUCROSE 100 MG in SODIUM CHLORIDE 0.9% 100 ML 100 ML IV SCH (21:25)
[2018-06-09] MEDS: ATORVASTATIN 40 MG TAB PO SCH (21:53)
[2018-06-09] MEDS: HYDROCODONE/APAP 5MG-325MG TAB PO PRN (22:17)
[2018-06-10] VITALS: BP 110/66
[2018-06-10 04:00] VITALS: BP 117/57
[2018-06-10 05:41] LABS: HEMATOCRIT 21.1 % (34.2-44.1); HEMOGLOBIN 6.9 g/dL (12.0-16.0)
[2018-06-10] MEDS: INSULIN LISPRO 100 UNIT/1 ML 3ML VIAL SQ SCH ×4 (07:30→21:00)
[2018-06-10 07:40] VITALS: BP 125/53
[2018-06-10] MEDS ORDERED: SODIUM CHLORIDE 0.9% 250ML 250 ML IV ONE (07:45)
[2018-06-10] MEDS: RIVAROXABAN 10 MG TABLET PO SCH (07:51)
[2018-06-10] MEDS: FOLIC ACID 1 MG TAB PO SCH (08:30)
[2018-06-10] MEDS: HYDROCHLOROTHIAZIDE 25 MG TAB PO SCH (08:30)
[2018-06-10] MEDS: METFORMIN HCL 500 MG TAB CR PO SCH (08:30)
[2018-06-10] MEDS: CARVEDILOL 12.5 MG TAB PO SCH ×2 (08:30→21:20)
[2018-06-10] MEDS: LISINOPRIL 10 MG TAB PO SCH (08:30)
[2018-06-10] MEDS: AMLODIPINE BESYLATE 5 MG TAB PO SCH (09:06)
[2018-06-10] MEDS: HYDROCODONE/APAP 5MG-325MG TAB PO PRN ×3 (09:06→22:47)
[2018-06-10 09:55] VITALS: BP 125/53
[2018-06-10 11:15] VITALS: BP 118/52
[2018-06-10 20:00] VITALS: BP 117/51
[2018-06-10] MEDS: IRON SUCROSE 100 MG in SODIUM CHLORIDE 0.9% 100 ML 100 ML IV SCH (20:00)
[2018-06-10] MEDS: ATORVASTATIN 40 MG TAB PO SCH (21:00)
[2018-06-11] VITALS: BP 121/56
[2018-06-11 04:00] VITALS: BP 122/59
[2018-06-11 05:40] LABS: BASOPHILS % 0.3 % (0.0-1.0); EOSINOPHILS # (AUTO) 0.2 (0.0-0.4); EOSINOPHILS % 7.2 % (0.0-6.0); HEMATOCRIT 25.5 % (34.2-44.1); HEMOGLOBIN 8.4 g/dL (12.0-16.0); LYMPHOCYTES # (AUTO) 0.8 (1.0-3.2); LYMPHOCYTES % 24.9 % (18.0-39.1); MEAN CORPUSCULAR HEMOGLOBIN 25.8 pg (28-32); MEAN CORPUSCULAR HGB CONC 32.9 g/dL (31-35); MEAN CORPUSCULAR VOLUME 78.5 fL (81-99); MONOCYTES # (AUTO) 0.3 (0.2-0.8); MONOCYTES % 7.5 % (4.4-11.3); NEUTROPHILS % 59.2 % (38.7-80.0); PLATELET COUNT 111 x10e3/uL (140-360); RED BLOOD COUNT 3.25 x10e6/uL (3.6-5.1); RED CELL DISTRIBUTION WIDTH 15.4 % (11.7-14.4)
[2018-06-11] MEDS: HYDROCODONE/APAP 5MG-325MG TAB PO PRN (06:23)
[2018-06-11] MEDS: INSULIN LISPRO 100 UNIT/1 ML 3ML VIAL SQ SCH ×2 (07:30→11:30)
[2018-06-11 07:40] VITALS: BP 135/61
[2018-06-11 08:40] VITALS: BP 135/61
[2018-06-11] MEDS: CARVEDILOL 12.5 MG TAB PO SCH (09:36)
[2018-06-11] MEDS: HYDROCHLOROTHIAZIDE 25 MG TAB PO SCH (09:36)
[2018-06-11] MEDS: FOLIC ACID 1 MG TAB PO SCH (09:37)
[2018-06-11] MEDS: LISINOPRIL 10 MG TAB PO SCH (09:37)
[2018-06-11] MEDS: AMLODIPINE BESYLATE 5 MG TAB PO SCH (09:37)
[2018-06-11] MEDS: METFORMIN HCL 500 MG TAB CR PO SCH (09:37)
[2018-06-11] MEDS: RIVAROXABAN 10 MG TABLET PO SCH (09:49)
--- NOTE | 2018-06-11 10:13 | Discharge Summary ---
PR[facility] C[facility] DO[facility] FINAL DIAGNOSIS: Right hip fracture. SECONDARY DIAGNOSES 1. Hypertension. 2. Diabetes. 3. Dyslipidemia. 4. Psoriasis. 5. Iron deficiency anemia, status post intravenous iron. CONSULTANTS: Dr. Dalton, orthopedic. PROCEDURES/STUDIES PERFORMED: Right hip ORIF. HISTORY: Per H and P. HOSPITAL COURSE: The patient was admitted. She underwent an uneventful ORIF, although she did have acute blood loss anemia postop requiring 1 unit of packed red blood cell transfusion. Her hemoglobin responded appropriately. Today is postop day #3. She is medically stable for transfer to [facility] for rehab. Her DVT prophylaxis with Xarelto was held. I will start that today for a total of 3 weeks. The patient will follow up with Dr. Dalton in 1 to 2 weeks. I have also notified the PCP about this hospitalization. The patient was seen and examined today. It took 32 minutes total to discharge this patient. CONDITION ON DISCHARGE: Improved. DISCHARGE MEDICATIONS: Please see medication reconciliation form. ANNIE GILMAN M.D. Job#: [id number] GE cc:PRIYA LUIS MD
[2018-06-11 11:43] VITALS: BP 110/56
== END 2018-06-11 12:28 | DRG 470 ==
LOC: ER 06:22 → ERHOLD 08:49 → MED/SURG 10:05
PROVIDERS: ADMIT Internal Medicine; ATTEND Internal Medicine
PROC: 0SRR0JA Replacement of Right Hip Joint, Femoral Surface with Synthetic Substitute, Uncemented, Open Approach (ICD-10-PCS; principal; 2018-06-08 15:00)
PROC: 30233P1 Transfusion of Nonautologous Frozen Red Cells into Peripheral Vein, Percutaneous Approach (ICD-10-PCS; 2018-06-10)
DX: S72.011A Unspecified intracapsular fracture of right femur, initial encounter for closed fracture (principal); D62 Acute posthemorrhagic anemia; W01.190A Fall on same level from slipping, tripping and stumbling with subsequent striking against furniture, initial encounter; Y93.01 Activity, walking, marching and hiking; Y92.019 Unspecified place in single-family (private) house as the place of occurrence of the external cause; E78.5 Hyperlipidemia, unspecified; L40.9 Psoriasis, unspecified; Z83.3 Family history of diabetes mellitus; Z82.49 Family history of ischemic heart disease and other diseases of the circulatory system; I13.10 Hypertensive heart and chronic kidney disease without heart failure, with stage 1 through stage 4 chronic kidney disease, or unspecified chronic kidney disease; N18.3 Chronic kidney disease, stage 3 (moderate); D50.9 Iron deficiency anemia, unspecified; E11.22 Type 2 diabetes mellitus with diabetic chronic kidney disease
CPT/HCPCS: 36415; 70450; 71045; 72125; 72170; 80048; 80053; 81001; 82550; 82553; 82948; 83540; 84466; 84484; 85014; 85018; 85025; 85610; 85730; 86850; 86900; 86920; 88305; 88311; 93005; 99285; C1776; J0690; J1100; J1170; J1756; J2001; J2370; J2405; J7030; J7050; P9016

== ENCOUNTER 2021-07-28 00:10 | Emergency (ER) | payer MEDICARE, OTHER ==
[~2021-07-28] VITALS: Ht 157.5 cm; Wt 68.0 kg
[~2021-07-28 00:10] MED LIST changes: +AMLODIPINE BESYL5 MG PO; +ATORVASTATIN CA20 MG PO; +FOLIC ACID1 MG PO; +METFORMIN HCL850 MG PO; +METHOTREXATE2.5 MG PO
[2021-07-28 01:02] VITALS: BP 136/76
== END 2021-07-28 01:32 | disposition home or self-care (01) ==
LOC: ER 00:20
DX: S61.511A Laceration without foreign body of right wrist, initial encounter (principal); W01.198A Fall on same level from slipping, tripping and stumbling with subsequent striking against other object, initial encounter; Y93.01 Activity, walking, marching and hiking; Y92.008 Other place in unspecified non-institutional (private) residence as the place of occurrence of the external cause
CPT/HCPCS: 99283

== ENCOUNTER 2021-07-29 14:29 | Emergency (ER) | payer MEDICARE, OTHER ==
[~2021-07-29] VITALS: Ht 157.5 cm; Wt 68.0 kg
== END 2021-07-29 15:15 | disposition home or self-care (01) ==
LOC: ER 15:12
DX: S61.511A Laceration without foreign body of right wrist, initial encounter (principal); W01.0XXA Fall on same level from slipping, tripping and stumbling without subsequent striking against object, initial encounter; I10 Essential (primary) hypertension; E11.9 Type 2 diabetes mellitus without complications; E78.5 Hyperlipidemia, unspecified; E78.00 Pure hypercholesterolemia, unspecified; L40.9 Psoriasis, unspecified; Z85.828 Personal history of other malignant neoplasm of skin
CPT/HCPCS: 99283

== ENCOUNTER 2024-09-08 02:52 | Emergency (ER) | payer MEDICARE ==
[~2024-09-08] VITALS: Ht 157.5 cm; Wt 63.0 kg
[2024-09-08] MEDS: OXYMETAZOLINE HCL 0.05% NAS 1 SPRAY BTL ONE (03:01)
[2024-09-08 03:08] LABS: BASOPHILS % 0.6 % (0.0-1.0); EOSINOPHILS # (AUTO) 0.3 (0.0-0.4); EOSINOPHILS % 4.8 % (0.0-6.0); HEMATOCRIT 36.8 % (34.2-44.1); HEMOGLOBIN 11.2 g/dL (12.0-16.0); LYMPHOCYTES # (AUTO) 1.5 (1.0-3.2); LYMPHOCYTES % 29.1 % (18.0-39.1); MEAN CORPUSCULAR HEMOGLOBIN 25.9 pg (28-32); MEAN CORPUSCULAR HGB CONC 30.4 g/dL (31-35); MEAN CORPUSCULAR VOLUME 85.2 fL (81-99); MONOCYTES # (AUTO) 0.3 (0.2-0.8); MONOCYTES % 6.6 % (4.4-11.3); NEUTROPHILS % 58.5 % (38.7-80.0); PLATELET COUNT 237 x10e3/uL (140-360); RED BLOOD COUNT 4.32 x10e6/uL (3.6-5.1); RED CELL DISTRIBUTION WIDTH 14.5 % (11.7-14.4); WHITE BLOOD COUNT 5.16 x10e3/uL (4.8-10.8)
[2024-09-08 03:10] VITALS: PULSE 86; RESP 16; TEMP 98.8
[2024-09-08 03:23] LABS: INR 0.86; PROTHROMBIN TIME 12.3 seconds (11.9-14.5)
[2024-09-08 03:24] LABS: PARTIAL THROMBOPLASTIN TIME 28.1 seconds (23.8-35.5)
[2024-09-08 03:32] LABS: ALBUMIN 4.2 g/dL (3.5-5.0); ALBUMIN/GLOBULIN RATIO 1.5 (0.8-2.0); BILIRUBIN,TOTAL 0.7 mg/dL (0.2-1.2); CALCIUM 9.5 mg/dL (8.4-10.2); CREATININE, SERUM 1.3 mg/dL (0.57-1.11)
[2024-09-08 03:58] VITALS: BP 153/58; PULSE 67; RESP 16; TEMP 98.2; O2SAT 96
== END 2024-09-08 04:06 | disposition home or self-care (01) ==
LOC: ER 02:55
DX: R04.0 Epistaxis (principal); I10 Essential (primary) hypertension; E11.65 Type 2 diabetes mellitus with hyperglycemia; E78.5 Hyperlipidemia, unspecified; E78.00 Pure hypercholesterolemia, unspecified; Z85.828 Personal history of other malignant neoplasm of skin
CPT/HCPCS: 36415; 80053; 85025; 85610; 85730; 99283